=== PATIENT | female | born 1945 | race Caucasian/White ===

== ENCOUNTER → 2020-01-24 | Outpatient (CLI) | payer OTHER | LOC: SJCVC 14:27 | DX: R94.31 Abnormal electrocardiogram [ECG] [EKG] (principal); E78.5 Hyperlipidemia, unspecified; I10 Essential (primary) hypertension; K83.09 Other cholangitis; R74.8 Abnormal levels of other serum enzymes ==

== ENCOUNTER → 2020-08-11 | Outpatient (CLI) | payer OTHER | LOC: SJCVC 12:58 | PROVIDERS: ATTEND Internal Medicine | DX: K83.09 Other cholangitis (principal); R74.8 Abnormal levels of other serum enzymes; E78.5 Hyperlipidemia, unspecified; I10 Essential (primary) hypertension ==

== ENCOUNTER → 2021-02-10 | Outpatient (CLI) | payer OTHER | LOC: SJCVC 11:14 | PROVIDERS: ATTEND Internal Medicine | DX: R00.1 Bradycardia, unspecified (principal); E78.5 Hyperlipidemia, unspecified; I10 Essential (primary) hypertension; K83.09 Other cholangitis; R74.8 Abnormal levels of other serum enzymes; E03.9 Hypothyroidism, unspecified; E66.9 Obesity, unspecified; Z79.899 Other long term (current) drug therapy; Z88.1 Allergy status to other antibiotic agents ==

== ENCOUNTER → 2021-08-12 | Outpatient (CLI) | payer OTHER | LOC: SJCVC 14:05 | PROVIDERS: ATTEND Internal Medicine | DX: R94.31 Abnormal electrocardiogram [ECG] [EKG] (principal); R00.1 Bradycardia, unspecified; I10 Essential (primary) hypertension; E78.5 Hyperlipidemia, unspecified; K83.09 Other cholangitis; R74.8 Abnormal levels of other serum enzymes; E66.9 Obesity, unspecified; Z79.899 Other long term (current) drug therapy; Z88.8 Allergy status to other drugs, medicaments and biological substances ==